=== PATIENT | female | born 1970 | race Caucasian/White ===

== ENCOUNTER 2016-10-21 09:16 | Emergency (ER) | payer OTHER ==
[~2016-10-21] VITALS: Ht 172.7 cm; Wt 100.0 kg
[~2016-10-21 09:16] MED LIST: ESOM1CAP6 PO; ESTR.625 PO; FOLI1TAB4 PO; HYDR200T3 PO; IBUP800T23 PO; LEVO150T7 PO; LEXA20TA PO; LISI20TA PO; METH2.5T PO; PROP60TA PO; QUET150XR PO; QUET50XR PO; TRAM50TA PO; TRAZ100T4 PO
[2016-10-21 09:29] VITALS: BP 138/97; PULSE 71; RESP 16; TEMP 98.1; O2SAT 98
[2016-10-21] MEDS ORDERED: ERYTOIN10 RIGHT EYE (10:03)
[2016-10-21] MEDS ORDERED: PERC5TAB12 PO (10:04)
--- NOTE | 2016-10-21 10:08 | PD ---
HPI Chief Complaint: Eye Problems/Injury Time Seen by Provider: 09:52 Travel History International Travel<30 days: No Contact w/Intl Traveler<30days: No Traveled to known affect area: No History of Present Illness HPI This patient complains of pain and irritation to her right eye. She thinks she may have a corneal abrasion. She's had them before. She gets dry eyes and he was feeling itchy and she rubbed it and then it developed a foreign body sensation. No vision loss. No drainage. Severity is moderate PFSH Past Medical History Cardiovascular Problems: Yes Diminished Hearing: No Hypertension: Yes Migraines: Yes Thyroid Disease: Yes (thyroidectomy) Tetanus Vaccination: < 5 Years Influenza Vaccination: No ?: Not Menopausal: Yes : 3 Para: 2 Miscarriage: 1 Past Surgical History Section: Yes (x2 ) Hysterectomy: Yes Social History Alcohol Use: Yes (SOCIAL) Tobacco Use: No Substance Use: No Allergies-Medications (Allergen,Severity, Reaction): Coded Allergies: Augmentin (Verified Allergy, Mild, Rash, vomiting, 10/21/16) Sulfa (Verified Allergy, Mild, Nausea/Vomiting, 10/21/16) Reported Meds & Prescriptions Reported Meds & Active Scripts Active Seroquel XR (Quetiapine Fumarate) 150 Mg Tab 150 Mg PO DAILY Ibuprofen 800 Mg Tab 800 Mg PO Q8H PRN Trazodone (Trazodone HCl) 100 Mg Tab 100 Mg PO HS Lexapro (Escitalopram Oxalate) 20 Mg Tab 20 Mg PO DAILY Levothyroxine (Levothyroxine Sodium) 150 Mcg Tab 150 Mcg PO DAILY Reported Nexium 24 HR (Esomeprazole DR) 20 Mg Capdr 20 Mg PO DAILY Tramadol (Tramadol HCl) 50 Mg Tab 50 Mg PO TID PRN Lisinopril-Hctz 20-12.5 Mg Tab 1 Tab PO DAILY Premarin (Estrogens Conjugated) 0.625 Mg Tab 0.625 Mg PO DAILY Hydroxychloroquine (Hydroxychloroquine Sulfate) 200 Mg Tab 200 Mg PO BID Takw with food Propranolol (Propranolol HCl) 60 Mg Tab 60 Mg PO DAILY Folate (Folic Acid) 1 Mg Tab 1 Mg PO DAILY Methotrexate 2.5 Mg Tab 2.5 Mg PO WEEKLY Takes 8 tabs once a week Review of Systems General / Constitutional: No: Fever Eyes: Positive: Foreign Body Sensation HENT: No: Headaches Physical Exam Narrative SKIN: Inspection shows no rash or ulcers. Palpation shows no induration or nodules. NECK: Symmetrical appearance, midline trachea. No mass or crepitus. Thyroid without enlargement, tenderness, or mass. Left sclerae clear Right sclerae has mild injection Fluorescein exam of the right eye was done. She has a corneal abrasion of the 2 o'clock position. No foreign bodies with lid eversion. No drainage. Data Data Last Documented VS Vital Signs Date Time Temp Pulse Resp B/P Pulse Ox O2 Delivery O2 Flow Rate FiO2 10/21/16 09:29 98.1 71 16 138/97 98 MDM Medical Decision Making Medical Screen Exam Complete: Yes Emergency Medical Condition: Yes Medical Record Reviewed: Yes Differential Diagnosis Corneal abrasion, foreign body, conjunctivitis Narrative Course I have reviewed the patient's electronic medical record. Patient has a corneal abrasion in the right eye. Prescribed erythromycin ointment as well as something for pain. Recommend ophthalmology follow-up The patient was warned about potential sedation for the medications they will receive on prescription. Diagnosis Primary Impression: Right cornea abrasion Qualified Code: S05.01XA - Right cornea abrasion, initial encounter Additional Instructions: The patient was advised to follow up with peer support specialist and return if they worsen. The patient was warned about potential sedation for the medications they will receive on prescription. Med/Other Pt SpecificInfo: Prescription(s) given Scripts Oxycodone-Acetaminophen (Percocet)5-325 mg Tab1 Tab PO Q6H PRN (PAIN) #15 TAB Ref 0 Prov:Josue Stein MD 10/21/16 Erythromycin Opth Oint 5 Mg/Gm Oint1 Applic RIGHT EYE QID #1 TUBE Ref 0 Prov:Josue Stein MD 10/21/16 Disposition: DISCHARGE HOME Condition: Stable Josue Stein MD Oct 21, 2016 10:08
[2016-10-28] MEDS ORDERED: LEVO150T7 PO ×2 (13:03→13:06)
[2016-11-20] MEDS ORDERED: LEVO150T7 PO (16:09)
[2016-12-17] MEDS ORDERED: ESTR.625 PO ×2 (16:45→16:46)
[2016-12-17] MEDS ORDERED: LISI20TA PO (16:47)
== END 2016-10-21 10:16 | disposition home or self-care (01) ==
LOC: PHED 09:16
DX: S05.01XA Injury of conjunctiva and corneal abrasion without foreign body, right eye, initial encounter (principal); I10 Essential (primary) hypertension
CPT/HCPCS: 99283

== ENCOUNTER 2017-01-18 18:34 | Emergency (ER) | payer OTHER, MEDICAID ==
[~2017-01-18] VITALS: Ht 172.7 cm; Wt 101.0 kg
[~2017-01-18 18:34] MED LIST changes: +ERYTOIN10 RIGHT EYE; -QUET50XR PO; -TRAZ100T4 PO
[2017-01-18 18:38] VITALS: BP 155/101; PULSE 54; RESP 16; TEMP 97.8; O2SAT 100
[2017-01-18] MEDS ORDERED: METH2.5T PO (18:54)
--- NOTE | 2017-01-18 19:14 | PD ---
HPI Chief Complaint: GI Complaint Time Seen by Provider: 19:05 Travel History International Travel<30 days: No Contact w/Intl Traveler<30days: No Traveled to known affect area: No History of Present Illness HPI This 46-year-old female says she been feeling very nauseated and she been having diarrhea for several days. Today she vomited once. She is having some crampy mid abdominal pain. She has a history of rheumatoid arthritis is quite severe. She is on methotrexate and Plaquenil. She also takes Celexa, Premarin and thyroid. She is on propranolol and lisinopril. PFSH Past Medical History Hx Anticoagulant Therapy: No Asthma: Yes (ra) Depression: Yes Cardiovascular Problems: Yes (HTN, CHOL) High Cholesterol: Yes (diet controlled) Diabetes: No Diminished Hearing: No Hypertension: Yes Migraines: Yes Thyroid Disease: Yes (thyroidectomy) ?: Not Menopausal: Yes : 3 Para: 2 Miscarriage: 1 Past Surgical History Section: Yes (x2 ) Hysterectomy: Yes Social History Alcohol Use: No (denies) Tobacco Use: No Substance Use: No Allergies-Medications (Allergen,Severity, Reaction): Coded Allergies: Augmentin (Verified Allergy, Mild, Rash, vomiting, 01/18/17) Sulfa (Verified Allergy, Mild, Nausea/Vomiting, 01/18/17) Reported Meds & Prescriptions Reported Meds & Active Scripts Active Lisinopril-Hctz 20-12.5 Mg Tab 1 Tab PO DAILY Premarin (Estrogens Conjugated) 0.625 Mg Tab 0.625 Mg PO DAILY Levothyroxine (Levothyroxine Sodium) 150 Mcg Tab 150 Mcg PO DAILY Lexapro (Escitalopram Oxalate) 20 Mg Tab 20 Mg PO DAILY Reported Methotrexate 2.5 Mg Tab 2.5 Mg PO Q7D Tramadol (Tramadol HCl) 50 Mg Tab 50 Mg PO TID PRN Propranolol (Propranolol HCl) 60 Mg Tab 60 Mg PO DAILY Folate (Folic Acid) 1 Mg Tab 1 Mg PO DAILY Methotrexate 2.5 Mg Tab 2.5 Mg PO WEEKLY Takes 8 tabs once a week Review of Systems General / Constitutional: No: Fever, Chills Eyes: No: Diploplia, Blurred Vision HENT: No: Headaches, Vertigo Cardiovascular: No: Chest Pain or Discomfort Respiratory: No: Cough, Shortness of Breath Gastrointestinal: Positive: Nausea, Vomiting, Diarrhea Genitourinary: No: Frequency, Dysuria Musculoskeletal: No: Myalgias Skin: No Rash Neurologic: No: Weakness Physical Exam Narrative GENERAL: Well-developed female SKIN: Focused skin assessment warm/dry. HEAD: Atraumatic. Normocephalic. EYES: Pupils equal and round. No scleral icterus. No injection or drainage. ENT: No nasal bleeding or discharge. Mucous membranes pink and moist. NECK: Trachea midline. No JVD. CARDIOVASCULAR: Regular rate and rhythm. No murmur appreciated. RESPIRATORY: No accessory muscle use. Clear to auscultation. Breath sounds equal bilaterally. GASTROINTESTINAL: Abdomen soft, non-tender, nondistended. Hepatic and splenic margins not palpable. MUSCULOSKELETAL: No obvious deformities. No clubbing. No cyanosis. No edema. NEUROLOGICAL: Awake and alert. No obvious cranial nerve deficits. Motor grossly within normal limits. Normal speech. PSYCHIATRIC: Appropriate mood and affect; insight and judgment normal. Data Data Last Documented VS Vital Signs Date Time Temp Pulse Resp B/P Pulse Ox O2 Delivery O2 Flow Rate FiO2 01/18/17 18:38 97.8 54 16 155/101 100 Orders Complete Blood Count With Diff (01/18/17 19:10) Comprehensive Metabolic Panel (01/18/17 19:10) Lipase (01/18/17 19:10) Sodium Chlor 0.9% 1000 Ml Inj (Ns 1000 M (01/18/17 19:15) Ondansetron Inj (Zofran Inj) (01/18/17 19:15) Potassium Chloride (Kcl) (01/18/17 20:15) Labs Laboratory Tests Test 01/18/17 19:34 White Blood Count 5.3 TH/MM3 Red Blood Count 4.77 MIL/MM3 Hemoglobin 14.1 GM/DL Hematocrit 43.1 % Mean Corpuscular Volume 90.4 FL Mean Corpuscular Hemoglobin 29.6 PG Mean Corpuscular Hemoglobin 32.8 % Concent Red Cell Distribution Width 13.2 % Platelet Count 203 TH/MM3 Mean Platelet Volume 9.4 FL Neutrophils (%) (Auto) 58.0 % Lymphocytes (%) (Auto) 30.3 % Monocytes (%) (Auto) 9.9 % Eosinophils (%) (Auto) 1.4 % Basophils (%) (Auto) 0.4 % Neutrophils # (Auto) 3.1 TH/MM3 Lymphocytes # (Auto) 1.6 TH/MM3 Monocytes # (Auto) 0.5 TH/MM3 Eosinophils # (Auto) 0.1 TH/MM3 Basophils # (Auto) 0.0 TH/MM3 CBC Comment DIFF FINAL Differential Comment Sodium Level 141 MEQ/L Potassium Level 3.1 MEQ/L Chloride Level 101 MEQ/L Carbon Dioxide Level 28.4 MEQ/L Anion Gap 12 MEQ/L Blood Urea Nitrogen 11 MG/DL Creatinine 0.87 MG/DL Estimat Glomerular Filtration 70 ML/MIN Rate Random Glucose 91 MG/DL Calcium Level 7.6 MG/DL Total Bilirubin 0.4 MG/DL Aspartate Amino Transf 19 U/L (AST/SGOT) Alanine Aminotransferase 22 U/L (ALT/SGPT) Alkaline Phosphatase 70 U/L Total Protein 8.6 GM/DL Albumin 3.7 GM/DL Lipase 205 U/L [facility] Medical Decision Making Medical Screen Exam Complete: Yes Emergency Medical Condition: Yes Medical Record Reviewed: Yes Differential Diagnosis Differential includes gastroenteritis, dehydration, Narrative Course White count is normal suggesting viral gastroenteritis. It was noted that her heart rate would dip into the 50s and even 40s. She is on Inderal long-acting 60 mg daily. I recommended that she cut this in half and take. I will prescribe some Zofran. She is stable for discharge Diagnosis Primary Impression: Gastroenteritis Scripts Ondansetron Odt (Zofran Odt)4 Mg Tab4 Mg SL Q6HR PRN (Nausea/Vomiting) #15 TAB Ref 0 Prov:Jorge Cline MD 01/18/17 Disposition: 01 DISCHARGE HOME Condition: Stable Jorge Cline MD Jan 18, 2017 19:14
[2017-01-18] MEDS ORDERED: SODIUM CHLOR 0.9% 1000 ML INJ 1,000 ML IV ONE (19:15)
[2017-01-18] MEDS ORDERED: ONDANSETRON HCL 4 MG/2 ML VIAL IV PUSH ONE (19:15)
[2017-01-18 19:46] LABS: AUTOMATED NEUTROPHIL # 3.1 TH/MM3 (1.8-7.7); BASOPHIL % 0.4 % (0.0-2.0); EOSINOPHIL # 0.1 TH/MM3 (0-0.4); EOSINOPHIL % 1.4 % (0.0-4.0); HEMATOCRIT 43.1 % (35.0-46.0); HEMO FLAGS DIFF FINAL; LYMPH % 30.3 % (9.0-44.0); LYMPHOCYTE # 1.6 TH/MM3 (1.0-4.8); MEAN CELL VOLUME 90.4 FL (80.0-100.0); MEAN CORPUSCULAR HEMOGLOBIN 29.6 PG (27.0-34.0); MEAN CORPUSCULAR HGB CONC 32.8 % (32.0-36.0); MONO % 9.9 % (0.0-8.0); PLATELET COUNT 203 TH/MM3 (150-450); RED BLOOD COUNT 4.77 MIL/MM3 (4.00-5.30); RED CELL DISTRIBUTION WIDTH 13.2 % (11.6-17.2); WHITE BLOOD COUNT 5.3 TH/MM3 (4.0-11.0)
[2017-01-18 20:04] LABS: CHLORIDE 101 MEQ/L (98-107); POTASSIUM 3.1 MEQ/L (3.5-5.1); SODIUM (NA) 141 MEQ/L (136-145)
[2017-01-18 20:09] LABS: ANION GAP 12 MEQ/L (5-15); BICARBONATE 28.4 MEQ/L (21.0-32.0); BLOOD UREA NITROGEN 11 MG/DL (7-18)
[2017-01-18 20:12] LABS: ALT (GPT) 22 U/L (10-53); AST (GOT) 19 U/L (15-37); GLOMERULAR FILTRATION RATE 70 ML/MIN (>89)
[2017-01-18 20:14] LABS: TOTAL BILIRUBIN ADULT 0.4 MG/DL (0.2-1.0)
[2017-01-18 20:15] LABS: ALKALINE PHOSPHATASE 70 U/L (45-117)
[2017-01-18] MEDS ORDERED: POTASSIUM CHLORIDE 20 MEQ CONTROLLED RELEASE TAB PO ONE (20:15)
[2017-01-18] MEDS ORDERED: ZOFR4TAB3 SL (20:37)
[2017-01-18 20:48] VITALS: BP 146/80
== END 2017-01-18 20:57 | disposition home or self-care (01) ==
LOC: PHED 18:34
DX: K52.9 Noninfective gastroenteritis and colitis, unspecified (principal); J45.909 Unspecified asthma, uncomplicated; E78.00 Pure hypercholesterolemia, unspecified; I10 Essential (primary) hypertension
CPT/HCPCS: 80053; 83690; 85025; 96361; 96374; 99284; J2405; J7030

== ENCOUNTER 2017-01-20 18:25 | Emergency (ER) | payer OTHER, MEDICAID ==
[~2017-01-20] VITALS: Ht 172.7 cm; Wt 97.0 kg
[~2017-01-20 18:25] MED LIST changes: +ZOFR4TAB3 SL
[2017-01-20 18:28] VITALS: BP 139/91; PULSE 60; RESP 20; TEMP 98.4; O2SAT 99
== END 2017-01-20 18:58 | disposition left against medical advice (07) ==
LOC: NED 18:25
DX: J00 Acute nasopharyngitis [common cold] (principal)
CPT/HCPCS: 99281

== ENCOUNTER 2017-09-23 19:44 | Emergency (ER) | payer OTHER, MEDICAID ==
[~2017-09-23 19:44] MED LIST changes: -ERYTOIN10 RIGHT EYE; -ESOM1CAP6 PO; -HYDR200T3 PO; -IBUP800T23 PO; -QUET150XR PO
[2017-09-23 19:47] VITALS: BP 179/106; PULSE 80; RESP 20; TEMP 97.7; O2SAT 100
[2017-09-23 19:51] VITALS: BP 163/81
[2017-09-23] MEDS ORDERED: FOLI1TAB6 PO (20:13)
[2017-09-23] MEDS ORDERED: KETOROLAC TROMETHAMINE 30 MG/ML (IVP) VIAL IV PUSH ONE (20:30)
[2017-09-23] MEDS ORDERED: LORazepam 2 MG/ML VIAL IV PUSH ONE (20:30)
[2017-09-23] MEDS ORDERED: SODIUM CHLOR 0.9% 1000 ML INJ 1,000 ML IV ONE (20:30)
[2017-09-23] MEDS ORDERED: METOCLOPRAMIDE INJ 10 MG in SODIUM CHLORIDE 0.9% INJ 50 ML IV ONE (20:30)
[2017-09-23] MEDS ORDERED: diphenhydrAMINE HCL 50 MG/ML VIAL IV PUSH ONE (20:30)
--- NOTE | 2017-09-23 20:57 | PD ---
HPI Chief Complaint: Headache Time Seen by Provider: 19:53 Travel History International Travel<30 days: No Contact w/Intl Traveler<30days: No Traveled to known affect area: No History of Present Illness HPI Patient is a 47-year-old female who is coming in complaining of headache mostly occipital that radiates forward she calls a severe migraine worst one of her life. She was seen in urgent care 2 weeks ago and given Toradol . She reports that it helped ALLEVIATE THE headache but then it came back. She used to be on propanolol as a beta yazan prophylaxis for migraines but she is not been on that for over a year. The pain is severe 10/10 the worst of her life. Radiating from the occipital muscles bilaterally patient has an appointment she says for an MRI tomorrow at [facility]. She took Motrin without relief PFSH Past Medical History Hx Anticoagulant Therapy: No Arthritis: Yes (Rheumatoid arthritis ) Asthma: Yes Anxiety: Yes Depression: Yes Cardiovascular Problems: Yes (HTN) High Cholesterol: Yes Diabetes: No Diminished Hearing: No Hypertension: Yes Migraines: Yes Thyroid Disease: Yes (thyroidectomy) Tetanus Vaccination: < 5 Years Influenza Vaccination: No ?: Unknown Menopausal: Yes : 3 Para: 2 Miscarriage: 1 Past Surgical History Section: Yes (x2 ) Hysterectomy: Yes Other Surgery: Yes (thyroid removal ) Social History Alcohol Use: No Tobacco Use: No Substance Use: No Allergies-Medications (Allergen,Severity, Reaction): Coded Allergies: Sulfa (Sulfonamide Antibiotics) (Unverified Allergy, Mild, Nausea/Vomiting , 09/23/17) amoxicillin (Unverified Allergy, Mild, Rash, vomiting, 09/23/17) clavulanic acid (Unverified Allergy, Mild, Rash, vomiting, 09/23/17) Reported Meds & Prescriptions Reported Meds & Active Scripts Active Lisinopril-Hctz 20-12.5 Mg Tab 1 Tab PO DAILY Premarin (Estrogens Conjugated) 0.625 Mg Tab 0.625 Mg PO DAILY Levothyroxine (Levothyroxine Sodium) 150 Mcg Tab 150 Mcg PO DAILY Reported Folic Acid 1 Mg Tablet 1 Mg PO DAILY Methotrexate 2.5 Mg Tab 2.5 Mg PO Q7D Review of Systems Except as stated in HPI: all other systems reviewed are Neg HENT: Positive: Headaches Physical Exam Narrative GENERAL: lying in the bed wearing dark shades nontoxic-appearing. SKIN: Warm and dry. HEAD: Atraumatic. Normocephalic. EYES: Pupils equal and round. No scleral icterus. No injection or drainage. ENT: No nasal bleeding or discharge. Mucous membranes pink and moist. NECK: Trachea midline. No JVD. The occipital muscles of her neck to her scalp are severely tender reproducible pain with palpation and , as I palpated she says the pain radiates up bilaterally her scalp CARDIOVASCULAR: Regular rate and rhythm. RESPIRATORY: No accessory muscle use. Clear to auscultation. Breath sounds equal bilaterally. GASTROINTESTINAL: Abdomen soft, non-tender, nondistended. Hepatic and splenic margins not palpable. MUSCULOSKELETAL: Extremities without clubbing, cyanosis, or edema. No obvious deformities. NEUROLOGICAL: Awake and alert. No obvious cranial nerve deficits. Motor grossly within normal limits. Five out of 5 muscle strength in the arms and legs. Normal speech. PSYCHIATRIC: Appropriate mood and affect; insight and judgment normal. Data Data Last Documented VS Vital Signs Date Time Temp Pulse Resp B/P (MAP) Pulse Ox O2 Delivery O2 Flow Rate FiO2 09/23/17 22:58 75 20 105/62 (76) 98 09/23/17 19:47 97.7 Orders Orders Metoclopramide Inj (Reglan Inj) (09/23/17 20:30) Ketorolac Inj (Toradol Inj) (09/23/17 20:30) Diphenhydramine Inj (Benadryl Inj) (09/23/17 20:30) Lorazepam Inj (Ativan Inj) (09/23/17 20:30) Sodium Chlor 0.9% 1000 Ml Inj (Ns 1000 M (09/23/17 20:30) Ed Discharge Order (09/23/17 22:41) [facility] Medical Decision Making Medical Screen Exam Complete: Yes Emergency Medical Condition: Yes Differential Diagnosis Migraine versus subdural versus hypertensive headache versus tension headache Narrative Course Patient is given a liter of fluid Reglan and Benadryl Toradol and 0.5 of Ativan falls asleep wakes up feeling better discharge for follow-up MRI in the morning Diagnosis Primary Impression: Headache Qualified Codes: R51 - Headache Patient Instructions: Acute Headache (ED), General Instructions Disposition: 01 DISCHARGE HOME Condition: Good Alexandre Baum MD Sep 23, 2017 20:57
[2017-09-23 22:16] VITALS: BP 105/66; PULSE 83; RESP 20; O2SAT 98
[2017-09-23 22:58] VITALS: BP 105/62
== END 2017-09-23 23:01 | disposition home or self-care (01) ==
LOC: PHED 19:44
DX: R51 Headache (principal); M06.9 Rheumatoid arthritis, unspecified; J45.909 Unspecified asthma, uncomplicated; F32.9 Major depressive disorder, single episode, unspecified; I10 Essential (primary) hypertension; E78.00 Pure hypercholesterolemia, unspecified; E07.9 Disorder of thyroid, unspecified; Z88.0 Allergy status to penicillin; Z88.2 Allergy status to sulfonamides
CPT/HCPCS: 96361; 96365; 96375; 99284; J1200; J1885; J2060; J2765; J7030